=== PATIENT | female | born 1965 | race African-American/Black ===

== ENCOUNTER 2019-06-11 14:33 | Emergency (ER) | payer OTHER ==
[2019-06-11 14:38] VITALS: BMI 23.5
--- NOTE | 2019-06-11 14:45 | PDOC ---
Rapid Medical Evaluation Chief Complaint: Pain, Acute Time Seen by Provider: 06/11/19 14:35 Medical Evaluation: Allergies Allergy/AdvReac Type Severity Reaction Status Date / Time No Known Allergies Allergy Verified 06/11/19 14:36 Vital Signs Temp Pulse Resp BP Pulse Ox 97.8 F 71 18 119/71 98 06/11/19 14:36 06/11/19 14:36 06/11/19 14:36 06/11/19 14:36 06/11/19 14:36 06/11/19 14:41 Pt c/o: rt lower quadrant sharp pain x 2 weeks, no other complaints, denies agravating factors, no meds taken, hx ovarian cyst and feels similar in nature Pt on brief exam: rt suprapubic/ midsuprapubic tenderness Pt ordered for : ua, uc x Pt to proceed to the ED Discharge Disposition - Diagnosis Left ovarian cyst Abdominal pain Qualifiers: Abdominal location: right lower quadrant Qualified Code(s): R10.31 - Right lower quadrant pain - Discharge Dispostion Disposition: HOME Condition at time of disposition: Improved - Referrals Referrals: Fiorella Hayden MD [Staff Physician] - Irvin Manrique MD [Staff Physician] - ON STAFF,NOT [Non Staff, Medical] - Santos Caputo MD [Staff Physician] - - Patient Instructions Printed Discharge Instructions: Ovarian Cyst, Acute Abdominal Pain, DI for Ovarian Cyst Removal, Functional Abdominal Pain-Child Additional Instructions: You came into the ER with lower right abdominal pain. We looked at your urine which showed no signs of infection. We looked at your blood and there were no abnormalities. We did a cat scan of your abdomen which did not show major abnormalities We gave you a copy of both your cat scan and ultrasound reads for you to go and discuss with your vegetable trimmer. We did an ultrasound which showed you have a left ovarian cyst - Please follow up with your vegetable trimmer about this cyst to consider having it removed if it continues to bother you Make sure to schedule a follow up appointment with your vegetable trimmer and a PCP as we discussed in the next few days. Your ER visit is not complete without this follow up. Come back to the ER immediately if your pain worsens or you have any other new or worsening concerns. Thank you for coming to the [facility] ER. We hope you feel better soon! Print Language: KYRGYZ - Post Discharge Activity
--- NOTE | 2019-06-11 15:15 | PDOC ---
Attending Attestation - Resident Resident Name: Janie Ramirezian - HPI HPI: 06/14/19 09:06 Pt presents to the ED complaining of RLQ and suprapubic pain that started yesterday and became worse today. Also complaining of dysuria. History of R sided ovarian cyst. Denies fever, nausea or vomiting or diarrhea. - Physicial Exam PE: 06/14/19 09:11 Agree with resident exam. APteint is alert and oriented and in no acute distress. Abdomen is soft, non tender and non distended without guarding or rebound. - Medical Decision Making 06/14/19 09:12 Ptp presents to the Ed complaining of RLQ abdominal pain. S/p appendectomy. UA is negative. Pelvic Us shows only small, L sided ovarian cyst. Will check CT and reassess. Likely discharge home if Ct is negative. Signed out to night team pending CT
--- NOTE | 2019-06-11 15:20 | PDOC ---
History of Present Illness - General Chief Complaint: Pain, Acute Stated Complaint: RT LOWER ABD PAIN Time Seen by Provider: 06/11/19 14:35 History Source: Patient Exam Limitations: No Limitations - History of Present Illness Initial Comments: Charley Catherine is a 53 yo obese F w a hx of multiple Right sided abdominal surgeries and an ovarian cyst who presents to the ER with RLQ pain occasionally associated with dysuria and urgency. She states she has recently had a strong urge to urinate but then whe she goes to the bathroom nothing comes out. She states she had an appendectomy so her pain is not related to her appendix. She describes her RLQ pain as a dull sensation 5/10, feels like it is burning in nature, came on 4 days ago, has nor progressed, is not associated with nausea, vomiting, diarrhea, constipation, or flank pain. PCP: Not on staff PSH: appendectomy Social Hx: Drinks red wine recreationally Allergies: NKA, NKDA Past History - Past Medical History Allergies/Adverse Reactions: Allergies Allergy/AdvReac Type Severity Reaction Status Date / Time No Known Allergies Allergy Verified 06/11/19 14:36 Home Medications: Ambulatory Orders NK [No Known Home Medication] 06/11/19 COPD: No - Immunization History Immunization Up to Date: No - Psycho Social/Smoking Cessation Hx Smoking History: Current some day smoker Have you smoked in the past 12 months: No Information on smoking cessation initiated: No Hx Alcohol Use: Yes Drug/Substance Use Hx: No Review of Systems - Review of Systems Able to Perform ROS?: Yes Comments:: CONSTITUTIONAL: Absent: fever, no chills, no fatigue EYES: Absent: visual changes ENT: Absent: ear pain, no sore throat CARDIOVASCULAR: Absent: chest pain, no palpitations RESPIRATORY: Absent: cough, no SOB GI: Present: Abdominal pain Absent: no nausea, no vomiting, no constipation, no diarrhea GENITOURINARY: Present: Dysuria, frequency, urgency Absent: no hematuria MUSKULOSKELETAL: Absent: back pain, no arthralgia, no myalgia SKIN: Absent: rash NEURO: Absent: headache *Physical Exam - Vital Signs Last Vital Signs Temp Pulse Resp BP Pulse Ox 97.8 F 71 18 119/71 98 06/11/19 14:36 06/11/19 14:36 06/11/19 14:36 06/11/19 14:36 06/11/19 14:36 - Physical Exam GENERAL: Well-appearing, well-nourished. No apparent distress. HEENT: Normocephalic, atraumatic. PERRL, EOM intact. CARDIOVASCULAR: Normal S1, S2. Regular rate and rhythm. PULMONARY: No evidence of respiratory distress. Lungs clear to auscultation bilaterally. No wheezing, rales or rhonchi. ABDOMEN: There is no RLQ abdominal TTP. No rebound or guarding. There is no abdominal TTP. Normal bowel sounds. EXTREMITIES: Normal ROM in all four extremities. No gross deformities. SKIN: Warm, dry. No rash NEUROLOGICAL: No focal neurological deficits. ED Treatment Course - LABORATORY CBC & Chemistry Diagram: 06/11/19 16:15 06/11/19 16:15 - RADIOLOGY Radiology Studies Ordered: Category Date Time Status TRANSVAGINAL ULTRASOUND US [US] Stat Ultrasound 06/11/19 15:08 Ordered Medical Decision Making - Medical Decision Making Charley Catherine is a 53 yo obese F w a hx of multiple Right sided abdominal surgeries and an ovarian cyst who presents to the ER with RLQ pain occasionally associated with dysuria and urgency. She states she has recently had a strong urge to urinate but then whe she goes to the bathroom nothing comes out. She states she had an appendectomy so her pain is not related to her appendix. She describes her RLQ pain as a dull sensation 5/10, feels like it is burning in nature, came on 4 days ago, has nor progressed, is not associated with nausea, vomiting, diarrhea, constipation, or flank pain. Vital Signs Temp Pulse Resp BP Pulse Ox 97.8 F 71 18 119/71 98 06/11/19 14:36 06/11/19 14:36 06/11/19 14:36 06/11/19 14:36 06/11/19 14:36 DDx IBNLT: UTI/pylo, electrolyte/metabolic disturbance, anemia, ovarian cyst vs torsion, hernia, diverticulitis, cholecystitis Plan: labs, UA, TVUS, analgesia, re-assess Labs and urine: unremarkable TVUS: Left ovarian cyst CTAP: Unremarkable - I offered and encouraged the patient to allow me to do a pelvic exam to assess if there are any physical abnormalities. She did not allow me to do a pelvic exam and said she is going to follow up with her technical stenographer tomorrow and she will have her technical stenographer perform the pelvic exam. Dispo: Home with OB FU - Patient states she has an appointment with her Ob doc tomorrrow Discharge - Discharge Information Problems reviewed: Yes Clinical Impression/Diagnosis: Left ovarian cyst Abdominal pain Qualifiers: Abdominal location: right lower quadrant Qualified Code(s): R10.31 - Right lower quadrant pain Condition: Improved Disposition: HOME - Admission No - Follow up/Referral Referrals: ON STAFF,NOT [Primary Care Provider] - Santos Caputo MD [Staff Physician] - Fiorella Hayden MD [Staff Physician] - Irvin Manrique MD [Staff Physician] - - Patient Discharge Instructions Patient Printed Discharge Instructions: Ovarian Cyst, Acute Abdominal Pain, DI for Ovarian Cyst Removal, Functional Abdominal Pain-Child Additional Instructions: You came into the ER with lower right abdominal pain. We looked at your urine which showed no signs of infection. We looked at your blood and there were no abnormalities. We did a cat scan of your abdomen which did not show major abnormalities We gave you a copy of both your cat scan and ultrasound reads for you to go and discuss with your technical stenographer. We did an ultrasound which showed you have a left ovarian cyst - Please follow up with your technical stenographer about this cyst to consider having it removed if it continues to bother you Make sure to schedule a follow up appointment with your technical stenographer and a PCP as we discussed in the next few days. Your ER visit is not complete without this follow up. Come back to the ER immediately if your pain worsens or you have any other new or worsening concerns. Thank you for coming to the [facility] ER. We hope you feel better soon! Print Language: SETSWANA - Post Discharge Activity
[2019-06-11 16:22] LABS: URINE APPEARANCE CLEAR; URINE BILIRUBIN NEGATIVE (NEGATIVE); URINE COLOR YELLOW; URINE GLUCOSE (UA) NEGATIVE (NEGATIVE); URINE KETONE NEGATIVE (NEGATIVE); URINE LEUK ESTERASE NEGATIVE (NEGATIVE); URINE NITRITE NEGATIVE (NEGATIVE); URINE PROTEIN NEGATIVE (NEGATIVE); URINE UROBILINOGEN 0.2 mg/dL (0.2-1.0)
[2019-06-11 16:32] LABS: BASO % 0.6 % (0-2.0); EOS % 0.9 % (0-4.5); HEMATOCRIT 40.7 % (32.4-45.2); HEMOGLOBIN 13.3 GM/dL (10.7-15.3); LYMPH % 38.8 % (8-40); MCH 26.1 pg (25.7-33.7); MCHC 32.8 g/dl (32.0-36.0); MEAN CELL VOLUME 79.5 fl (80-96); MEAN PLT VOLUME 8.2 fl (7.5-11.1); NEUT % 51.7 % (42.8-82.8); PLATELET COUNT 259 K/MM3 (134-434); RBC 5.11 M/mm3 (3.60-5.2); RDW 16.7 % (11.6-15.6); WHITE BLOOD COUNT 4.4 K/mm3 (4.0-10.0)
[2019-06-11 17:00] LABS: ALBUMIN 3.9 g/dl (3.4-5.0); BILIRUBIN,TOTAL 0.4 mg/dL (0.2-1); BLOOD UREA NITROGEN 13.1 mg/dL (7-18); CALCIUM 9.6 mg/dL (8.5-10.1); CREATININE 0.7 mg/dL (0.55-1.3); POTASSIUM 4.3 mmol/L (3.5-5.1); TOT PROT 7.4 g/dl (6.4-8.2)
[2019-06-11 21:03] VITALS: BP 109/65; PULSE 63; TEMP 97.9
== END 2019-06-11 21:03 | disposition home or self-care (01) ==
LOC: JER 14:33
DX: N83.202 Unspecified ovarian cyst, left side (principal); R10.31 Right lower quadrant pain; Z72.0 Tobacco use
CPT/HCPCS: 36415; 74177-TC; 76830-TC; 80053; 81003; 85025; 87086; 99283-25; Q9967

== ENCOUNTER 2022-01-23 20:36 | Emergency (ER) | payer OTHER ==
[2022-01-23 20:44] VITALS: BP 106/68; PULSE 78; RESP 19; TEMP 98.6; BMI 23.5
[2022-01-23] MEDS ORDERED: KETOROLAC TROMETHAMINE 30 MG/1 ML VIAL IM ONE (21:18)
[2022-01-23] MEDS ORDERED: DIPHTH,PERTUSS(ACELL),TET 0.5 ML DISP.SYRIN IM ONE ×2 (21:23→21:25)
[2022-01-23] MEDS ORDERED: KETOROLAC TROMETHAMINE 30 MG/1 ML VIAL ONE (21:23)
== END 2022-01-23 22:20 | disposition home or self-care (01) ==
LOC: JERFT 20:36
PROC: 2W3CX1Z Immobilization of Right Lower Arm using Splint (ICD-10-PCS; principal; 2022-01-23)
PROC: 3E0234Z Introduction of Serum, Toxoid and Vaccine into Muscle, Percutaneous Approach (ICD-10-PCS; 2022-01-23)
PROC: 3E0233Z Introduction of Anti-inflammatory into Muscle, Percutaneous Approach (ICD-10-PCS; 2022-01-23)
DX: S62.101A Fracture of unspecified carpal bone, right wrist, initial encounter for closed fracture (principal); W01.0XXA Fall on same level from slipping, tripping and stumbling without subsequent striking against object, initial encounter
CPT/HCPCS: 73110-TC-RT-FY; 73130-TC-RT-FY; 90715; 99284-25